=== PATIENT | male | born 1970 | race Caucasian/White ===

== ENCOUNTER 2022-04-30 13:05 | Emergency (ER) | payer OTHER, SELFPAY ==
[2022-04-30 13:12] VITALS: BP 125/83; PULSE 79; TEMP 36.5; O2SAT 7; BMI 25.1
--- NOTE | 2022-04-30 13:56 | ED.LOWEXIN ---
HPI - Extremity Injury (Lower) General Chief Complaint: Extremity Pain/Injury, Lower Stated Complaint: Tree Branch stuck in leg Time Seen by Provider: 04/30/22 13:18 History of Present Illness HPI Narrative: This 51-year-old male comes in with foreign object imbedded in his right lower extremity. He states that a small portion of a twig or branch is lodged in the medial posterior aspect of his right lower extremity just below the knee joint. He states that his tetanus is up-to-date. Related Data Home Medications Medication Instructions Recorded Confirmed atorvastatin 20 mg tablet mg 04/30/22 fluoxetine 40 mg capsule mg 04/30/22 omeprazole 20 mg capsule,delayed mg 04/30/22 release sildenafil 25 mg tablet mg 04/30/22 Allergies Allergy/AdvReac Type Severity Reaction Status Date / Time No Known Drug Allergies Allergy Verified 04/30/22 13:20 Review of Systems Status of ROS: Reports: 10 or more systems reviewed and unremarkable except as noted in History and below Narrative: Constitutional: No fevers, no weight gain or loss. Eyes: No discharge. No vision changes. HENT: No congestion, no sore throat, no ear pain. Cardiovascular: No chest pain, no palpitations. Respiratory: No shortness of breath, no wheezes, no cough. Gastrointestinal: No abdominal pain, no vomiting, no diarrhea. Genitourinary: No dysuria, no hematuria. Musculoskeletal: Normal range of motion. Skin: No rashes, no pruritis. Foreign object in the right lower extremity as described above. Neurological: No dizziness, weakness, sensory change, speech change. Endo/Heme/Allergies: No bruising or bleeding. No polydipsia. Pysch: no suicidality, no anxiety, no insomnia. All other systems reviewed and are negative. Exam Narrative: Exam Narrative: Constitutional: Well-developed, well-nourished, no acute distress. HEENT: Normocephalic, atraumatic. Neck: Normal range of motion. Nontender. Supple. Heart: Intact distal pulses. Lungs: No chest discomfort. No wheezes, rhonchi, or rales. Abdomen: Nontender. Back: Normal range of motion. Extremities: Normal range of motion. Puncture wound in the right lower extremity on the posterior medial aspect of the right leg just below the knee joint. Skin: Intact. No rash. Warm. No erythema or pallor. Neurologic: No altered sensation. No weakness. Alert and oriented. Psychiatric: No suicidality. No anxiety or depression. No insomnia. Nursing notes and vitals signs are reviewed. Const: Vital Signs, click to edit/add: Vital Signs - 24 hr 04/30/22 13:12 Temperature 97.7 F Pulse Rate [Right Pulse Oximeter] 79 Blood Pressure [Ri ght Upper Arm] 125/83 Pulse Oximetry 7 L Course Vital Signs Vital signs: Initial Vital Signs Temperature 97.7 F 04/30/22 13:12 Temperature Source Temporal Artery Scan 04/30/22 13:12 Pulse Rate 79 04/30/22 13:12 Blood Pressure 125/83 04/30/22 13:12 Blood Pressure Mean 97 04/30/22 13:12 Blood Pressure Position Sitting 04/30/22 13:12 Pulse Oximetry 7 L 04/30/22 13:12 Oxygen Delivery Method 04/30/22 13:12 Vital Signs Temperature 97.7 F 04/30/22 13:12 Pulse Rate 79 04/30/22 13:12 Blood Pressure 125/83 04/30/22 13:12 Pulse Oximetry 7 L 04/30/22 13:12 Temperature 97.7 F 04/30/22 13:12 Pulse Rate 79 04/30/22 13:12 Blood Pressure 125/83 04/30/22 13:12 Pulse Oximetry 7 L 04/30/22 13:12 MDM - Extremity Injury (Lower) MDM Narrative Medical decision making narrative: This patient has a foreign object in his right lower extremity as described above. After anesthesia with 1% lidocaine I did use a 11. Blade to open the wound a bit. With pickups I was able to extract a twig about 4 cm in length and 1 cm in diameter. There was of few items of residual bark in the wound that was also removed. I did irrigate the wound several times and probed for any residual foreign object. The wound appears to clean. It was left to heal by secondary intention. A Band-Aid was applied. Instructions were given regarding wound care. Discharge Plan Discharge Clinical Impression: Foreign body in right lower extremity Patient Disposition: Home, Self-Care Condition: Improved Additional Instructions: Foreign object in the right lower extremity. Keep wound clean and dry. Follow up with MD or return if worsening symptoms occur. Prescriptions: No Action fluoxetine 40 mg capsule 0RF atorvastatin 20 mg tablet 0RF sildenafil 25 mg tablet 0RF omeprazole 20 mg capsule,delayed release(DR/EC) 0RF Follow Up/Referrals: Katerina Hillman MD [Primary Care Provider] - Stand Alone Forms: [employer] Info Instructions
== END 2022-04-30 14:13 | disposition home or self-care (01) ==
PROVIDERS: Emergency Provider Emergency Medicine Emergency Medical Services; PCP Family Medicine
DX: S81.841A Puncture wound with foreign body, right lower leg, initial encounter (principal); Z18.33 Retained wood fragments
CPT/HCPCS: 10120; 99283